=== PATIENT | female | born 1995 | race Two or more races ===

== ENCOUNTER → 2024-05-17 | Outpatient (CLI) | payer MEDICAID, SELFPAY ==
--- NOTE | 2024-05-17 11:03 | EKG_ITS ---
[facility] Test Date: 2024-05-17 Pat Name: NIKO SANTOS Department: Room: - Gender: Female Radio Broadcaster: [facility] : 1995 Requested By: Karen Vela Order Number: [id number] Reading MD: Karen Vela Measurements Intervals [place] Rate: 80 P: 53 WI: 157 QRS: 71 QRSD: 85 T: 36 QT: 352 QTc: 408 Interpretive Statements SINUS RHYTHM WITH SINUS ARRHYTHMIA No previous ECG available for comparison /[id number].pdf
== END | disposition home or self-care (01) ==
PROVIDERS: PCP Internal Medicine; Referring Provider Internal Medicine; Visit Provider Internal Medicine
DX: R07.9 Chest pain, unspecified (principal)
CPT/HCPCS: 93005